=== PATIENT | female | born 1975 | race African-American/Black ===

== ENCOUNTER 2016-10-07 20:34 | Emergency (ER) ==
[2016-10-07] MEDS ORDERED: DECADRON PO ONE (23:36)
--- NOTE | 2016-10-07 23:38 | PROVIDER DOCUMENTATION ---
HPI-General Adult - General Chief Complaint: Cold Symptoms Stated Complaint: FLU SX Time Seen by Provider: 10/07/16 23:32 Source: patient Allergies/Adverse Reactions: Patient Allergies Allergy/AdvReac Type Severity Reaction Status Date / Time No Known Allergies Allergy Verified 01/26/14 14:21 Home Medications: Home Medication List Medication Instructions Recorded Confirmed Last Taken Type LISINOpril [Prinivil] 20 mg PO DAILY 11/15/13 01/26/14 Unknown History Sulfamethoxazole/Trimethoprim 1 each PO BID #20 tablet 01/26/14 Unknown Rx [Bactrim Ds Tablet] Clonidine HCl 0.1 mg PO TID PRN #30 tablet 08/08/16 Unknown Rx Hydrochlorothiazide 25 mg PO BID #30 tablet 08/08/16 Unknown Rx Nitrofurantoin Monohyd/M-Cryst 100 mg PO BID #20 capsule 08/08/16 Unknown Rx [Macrobid 100 mg Capsule] Phenazopyridine HCl [Pyridium] 200 mg PO TID #6 tablet 08/08/16 Unknown Rx Amoxicillin/Pot Clavulanate 875 mg PO Q12HR #14 tablet 10/07/16 Unknown Rx [Augmentin] Methylprednisolone [Medrol Dosepak] 4 mg PO DIRECTED #1 package 10/07/16 Unknown Rx - History of Present Illness -Gen Adult Nature of Presenting Problems: Pt is a 40 y/o AA female c chief complaint of sinus congestion, cough and cold symptoms x 5-7 days. pt states she was exposed by her who has the same symptoms. pt states her frontal sinuses have become painful and she has had a fever at home. On arrival, pt is in no distress. Review of Systems - Adult - REVIEW OF SYSTEMS - ADULT Constitutional: reports: chills, fever, fatique Eyes: reports: no symptoms reported. denies: discharge, blurred vision, double vision Ears, Nose, Mouth & Throat: reports: sinus problem. denies: ear pain, nose pain Cardiovascular: reports: no symptoms reported. denies: chest pain, irregular heart rate Respiratory: reports: cough. denies: shortness of breath Gastrointestinal: reports: no symptoms reported. denies: abdominal pain, nausea Genitourinary: reports: no symptoms reported. denies: dysuria, frequent UTI's, hematuria Musculoskeletal: reports: no symptoms reported. denies: bone pain, joint pain Integumentary: reports: no symptoms reported. denies: hives, itching, rash Neurological: reports: no symptoms reported. denies: loss of balance, numbness , paresthesia Psychiatric: reports: no symptoms reported Endocrine: reports: no symptoms reported Hematologic/Lymphatic: reports: no symptoms reported Allergic/Immunologic: reports: no symptoms reported All Other Systems: Reviewed and Negative Past History - Adult - PAST MEDICAL HISTORY-ADULT Review of Records: reports: Old Records Reviewed, Nursing Assessment Review, Medications Reviewed, Social history reviewed & non-contributory. Major Childhood Illnesses: reports: denies history Cardiovascular: reports: HTN (reports takes antihypertensives daily) Respiratory: reports: denies history Gastrointestinal: reports: denies history Obstetrical/Gynecological: reports: denies history Genitourinary: reports: denies history Musculoskeletal: reports: denies history Neurological: reports: other ((+) history of panic attacks/anxiety) Psychiatric: reports: depression Endocrine/Immune: reports: denies history Other Conditions: reports: denies history - IMMUNIZATION STATUS Childhood Immunizations: See Nurse Assessment Flu Vaccine: See Nurse Assessment - FAMILY HISTORY Family History: reviewed, not pertinent Physical Exam-General - PHYSICAL EXAM-ADULT Initial Vital Signs Reviewed: Yes - CONSTITUTIONAL General Appearance: appears well, alert, no apparent distress - EYES Eyes: PERRL/EOMI, pink conjunctivae - HEAD, EARS, NOSE, MOUTH & THROAT HENMT: normocephalic/atraumatic, moist mucous membranes, normal ENT inspection, frontal tenderness - NECK Neck: non-tender, normal inspection - RESPIRATORY Respiratory: chest non-tender, lungs clear, normal breath sounds - CARDIOVASCULAR Cardiovascular: normal peripheral pulses, regular rate, rhythm, no edema - GASTROINTESTINAL (ABDOMEN) Abdominal Exam: normal bowel sounds, non tender, soft - LYMPHATIC Lymphatic: no adenopathy - MUSCULOSKELETAL Back Exam: normal inspection, no CVA tenderness, no vertebral tenderness Extremity: normal range of motion, non-tender, normal gait - SKIN Integumentary: normal color, normal turgor, warm/dry - NEUROLOGIC Neurologic: grossly normal, no motor/sensory deficits - PSYCHIATRIC Psych/Mental Status: normal mood/affect, normal thought content, normal thought process, oriented x 3 Progress - PLAN OF CARE/RESULTS Progress/Plan/Lab Results: Orders Category Date Time Status DIRECT STREP PL Stat Lab 10/07/16 20:47 Completed Flu [INFLUENZA SCREEN PL] Stat Lab 10/07/16 20:47 Completed Clonidine [Catapres] Med 10/08/16 00:01 Discontinued 0.2 mg .ROUTE .STK-MED ONE Clonidine [Catapres] Med 10/08/16 00:06 Discontinued 0.2 mg PO NOW ONE Dexamethasone [Decadron] Med 10/07/16 23:36 Discontinued 4 mg PO NOW ONE Laboratory Tests 10/07/16 10/07/16 20:47 20:47 Influenza A (Rapid) NEGATIVE Influenza B (Rapid) NEGATIVE Group A Strep Rapid NEGATIVE Vital Signs - 24 hr 10/07/16 10/08/16 10/08/16 20:43 00:00 00:02 Temperature 98.2 F 99.3 F Pulse Rate 86 84 Respiratory 18 18 Rate Blood Pressure 170/120 191/120 184/122 O2 Sat by Pulse 100 100 Oximetry 10/08/16 10/08/16 00:28 00:50 Temperature 98.2 F Pulse Rate 86 Respiratory 18 Rate Blood Pressure 193/122 150/98 O2 Sat by Pulse 100 Oximetry Departure - Departure Time of Disposition Order: 23:37 DIAGNOSIS: URI (upper respiratory infection) Qualifiers: URI type: unspecified URI Qualified Code(s): J06.9 - Acute upper respiratory infection, unspecified Sinusitis Qualifiers: Sinusitis location: frontal Chronicity: acute Recurrence: non-recurrent Qualified Code(s): J01.10 - Acute frontal sinusitis, unspecified Disposition: HOME 01 Certified Medical Emergency: Emergent Condition: Stable Additional Instructions: ED Follow Up Instructions: You have been treated by a care provider in the Emergency Department. These instructions are being provided to you so you can have an understanding of how to care for yourself upon discharge. Upon discharge from the Emergency Department, you are responsible for making arrangements for follow-up care by a physician of your choice. Take all prescribed medications as directed. Return to the Emergency Department immediately for any new or worsening symptoms. You may call the Physician Referral phone number at [phone] to obtain a list of Physicians who are taking new patients. Prescriptions: Amoxicillin/Pot Clavulanate [Augmentin] 875 mg PO Q12HR #14 tablet Methylprednisolone [Medrol Dosepak] 4 mg PO DIRECTED #1 package Referrals: Randy Cuadra MD [STAFF PHYSICIAN] - Forms: Return to School/Parent Work Instructions: Amoxicillin capsules or tablets, Sinusitis, [id number], Upper Respiratory Infection, Adult, [id number], Methylprednisolone tablets Attestation - Physician/ MAKAYLA Attestation Patient care was provided by Advanced Practice Provider:: Yes Advanced Practice Provider:: Arben Gallardo Advanced Practice Provider documentation review:: The Mid-level provider documentation, treatment plan and medical decision making was reviewed by the physician who agrees with all treatment and medical decision making by the MLP.
[2016-10-08] MEDS ORDERED: CATAPRES ONE (00:01)
[2016-10-08] MEDS ORDERED: CATAPRES PO ONE (00:06)
[2016-10-08 00:51] VITALS: BP 150/98
== END 2016-10-08 00:51 | disposition home or self-care (01) ==
LOC: P.ED 20:34
DX: J06.9 Acute upper respiratory infection, unspecified (principal); J01.10 Acute frontal sinusitis, unspecified; R09.81 Nasal congestion; R05 Cough; R50.9 Fever, unspecified; R53.83 Other fatigue; I10 Essential (primary) hypertension; F32.9 Major depressive disorder, single episode, unspecified; Z79.899 Other long term (current) drug therapy
CPT/HCPCS: 87081; 87430; 87804; 99283; J8540